=== PATIENT | female | born 1955 | race Caucasian/White ===

== ENCOUNTER 2024-02-11 09:25 | Emergency (ER) | payer OTHER, SELFPAY ==
[2024-02-11 09:33] VITALS: PULSE 43; RESP 46; O2SAT 98
[2024-02-11 09:35] VITALS: BP 167/79; PULSE 40; PULSE 43; RESP 16; RESP 20; TEMP 37.1; O2SAT 100; O2SAT 98; BMI 30.5
[2024-02-11 10:00] VITALS: PULSE 40; RESP 17; O2SAT 98
--- NOTE | 2024-02-11 10:02 | ED_ITS ---
HPI - Allergic Reaction General Chief complaint: Allergic Reaction Stated complaint: RASH ALL OVER, SOB, WHEEZING Time Seen by Provider: 02/11/24 09:28 Source: patient Mode of arrival: Ambulatory History of Present Illness HPI narrative: Patient is a 68-year-old female. She was here for evaluation of a rash that is located on her upper arms and upper chest and around her ankles. Has actually been present for the past several weeks but has been worsening over this time. Approximately 1 week prior to the onset of the rash she started amiodarone after having an ablation. She also states that she is somewhat wheezing and that her throat feels somewhat uneasy. 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 She stopped taking the amiodarone approximately 3 days ago after talking with the on-call specialty trimmer. She has been taking Benadryl for the past 3 days as well without much improvement. She states the rashes itching. No other new exposures that she knows of. No fevers. No recent travel. No GI symptoms. Related Data Home Medications Medication Instructions Recorded Confirmed albuterol sulfate 90 mcg/actuation 1 puff INH QID ##8.5 09/24/12 aerosol inhaler (Proventil HFA) ibuprofen 800 mg tablet 800 mg PO Q6H ##0 09/24/12 Previous Rx's Medication Instructions Recorded AZITHROMYCIN (ZITHROMAX Z-DELFIN) 250 mg PO QDAY ##1 09/24/12 prednisone 20 mg tablet 0 PO SEE INSTRUCTIONS ##9 09/24/12 prednisone 20 mg tablet 20 mg PO DAILY 6 days #6 tabs 02/11/24 Allergies Allergy/AdvReac Type Severity Reaction Status Date / Time amiodarone Allergy Verified 02/11/24 09:38 Review of Systems Review of Systems Narrative: See HPI Patient History Social History Smoking Status: Former smoker Smoking Status: Former smoker alcohol intake frequency: holidays/special occasions only Substance Use Type: does not use Exam Initial Vital Signs Initial Vital Signs: Vital Signs Pulse Rate 43 L 02/11/24 09:33 Respiratory Rate 46 H 02/11/24 09:33 Pulse Oximetry 98 02/11/24 09:33 HENMT Mouth: oral mucosae normal, lip normal, tongue normal and oropharynx normal Throat: uvula midline and posterior oropharynx abnormal Resp Effort & Inspection: normal respiratory effort Auscultation: clear to auscultation bilaterally Cardio Rate: bradycardic Rhythm: regular rhythm Skin Other: Patient with a macular papular rash located mostly on the upper arms and across the chest. Is also located around her ankles. There are no vesicles. No pustules. Neuro General: patient alert and patient awake Course Orders Ordered: Discontinued Medications Methylprednisolone (Methylprednisolone 125 Mg/2 Ml Vial) 125 mg IV NOW ONE Stop: 02/11/24 10:03 Vital Signs Vital signs: Vital Signs - 8 hr 02/11/24 09:33 02/11/24 09:35 02/11/24 09:35 Temperature 98.7 F Pulse Rate 43 L 43 L 40 L Respiratory Rate 46 H 20 16 Blood Pressure 167/79 H Pulse Oximetry 98 98 100 Oxygen Delivery Method Room Air Room Air 02/11/24 09:35 Temperature Pulse Rate Respiratory Rate Blood Pressure 167/79 H Pulse Oximetry Oxygen Delivery Method MDM - Allergic Reaction MDM Narrative Medical decision making narrative: Patient is well-appearing. No fevers. Does have a rash but has been there for several weeks. Does not look like an infectious process. Potentially related to the amiodarone but she has been off this medication for 3 days now. Benadryl has not been helping. Since it is more systemic will put her on steroids for the next couple days. First dose was given here in the ER. Her presenting symptoms are not consistent with anaphylaxis. Will have her contact her primary doctor and also her specialty trimmer for follow-up. She was given return precautions. She expressed understanding and agreement. Discharge Plan Departure Patient Disposition: Home Clinical Impression: Rash Instructions: DI for Rash Activity Restrictions/Additional Instructions: Recommend that you take the steroids on a daily basis as directed. Contact your specialty trimmer to discuss whether or not you need to reschedule the ablation for next week. Return to the emergency department for new or worsening symptoms. Prescriptions: New prednisone 20 mg tablet 20 mg PO DAILY 6 Days Qty: 6 0RF No Action albuterol sulfate [Proventil HFA] 90 MCG/PUFF HFA aerosol inhaler 1 puff INH QID Qty: 8.5 ibuprofen 800 MG tablet 800 mg PO Q6H Qty: 0 AZITHROMYCIN (ZITHROMAX Z-DELFIN) 250 mg PO QDAY Qty: 1 1RF prednisone 20 MG tablet 0 PO SEE INSTRUCTIONS Qty: 9 0RF Stand Alone Forms: Patient Portal/API
[2024-02-11] MEDS: methylPREDNISolone 125 MG/2 ML VIAL IV (10:09)
== END 2024-02-11 10:39 | disposition home or self-care (01) ==
LOC: ED 10:36
PROVIDERS: Emergency Provider Emergency Medicine
DX: R21 Rash and other nonspecific skin eruption (principal)
CPT/HCPCS: 36415; 96374; 99283; 99284; J2919